=== PATIENT | female | born 1975 | race Caucasian/White ===

== ENCOUNTER 2023-03-28 16:26 | Emergency (ER) | payer BC ==
[~2023-03-28 16:26] MED LIST: Iopamidol 370 76% 100 ML VIAL ONE
[2023-03-28 16:50] LABS: #Basophils 0.1 thou/uL (0.0-0.2); #Eosinphils 0.3 thou/uL (0.0-0.7); #Lymphocytes 3.1 thou/uL (1.20-3.40); #Monocytes 0.7 thou/uL (0.11-0.59); #Neutrophils 6.6 thou/uL (1.40-6.50); %Eosinophils 2.8 % (0.0-10.0); %Lymphocytes 28.7 % (21.0-51.0); %Monocytes 6.8 % (0.0-10.0); %Neutrophils 60.7 % (42.0-75.0); Hemoglobin 13.4 g/dL (12.0-16.0); Mean Corpuscular HGB CONC 32.6 g/dL (32.0-36.0); Mean Corpuscular Hemoglobin 28.9 pg (27.0-31.0); Mean Corpuscular Volume 88.7 fl (78.0-98.0); Mean Platelet Volume 7.5 fL (7.4-10.4); Platelet Count 376 10x3/uL (130-400); RBC Distribution Width 12.3 % (11.5-14.5); Red Blood Cell (RBC) Count 4.63 mill/uL (4.20-5.40); White Blood Cell (WBC) Count 10.8 10x3/uL (4.8-10.8)
[2023-03-28 17:07] LABS: ALT (SGPT) 13 U/L (8-55); AST (SGOT) 13 U/L (5-34); Albumin 4.1 g/dL (3.5-5.0); Alkaline Phosphatase 86 U/L (40-110); Anion Gap 15 mmol/L (10-20); BUN (Urea Nitrogen) 16 mg/dL (7.0-18.7); Bilirubin, Total 0.3 mg/dL (0.2-1.2); Calc. Creatinine Clearance 0 mL/min (70-130); Calcium 9.3 mg/dL (7.8-10.44); Carbon Dioxide 21 mmol/L (22-29); Chloride 105 mmol/L (98-107); Estimated GFR 86; Globulin 3.4 g/dL (2.4-3.5); Glucose 81 mg/dL (70-105); Potassium 3.7 mmol/L (3.5-5.1); Protein, Total 7.5 g/dL (6.0-8.3); Sodium 137 mmol/L (136-145)
[2023-03-28 17:09] LABS: Troponin I Less than 0.010 ng/mL (< 0.028)
[2023-03-28] MEDS ORDERED: Ketorolac Tromethamine 30 MG/ML VIAL ONE (17:29)
[2023-03-28] MEDS ORDERED: Cyclobenzaprine 10 MG TAB ONE (18:25)
== END 2023-03-28 18:31 | disposition home or self-care (01) ==
LOC: BURERS 16:26
DX: R07.2 Precordial pain (principal); I10 Essential (primary) hypertension
CPT/HCPCS: 36415; 71045; 71275; 80053; 84443; 84484; 85025; 85379; 93005; 96374; J1885; Q9967

== ENCOUNTER 2024-02-28 09:16 | Emergency (ER) | payer BC, OTHER ==
[2024-02-28] MEDS ORDERED: Boostrix 0.5 ML (Tdap) VIAL (>/=7 yrs of age) ONE (09:38)
[2024-02-28] MEDS ORDERED: Lidocaine 1%/Epinephrine 1:100K 10 ML VIAL ONE (09:38)
== END 2024-02-28 10:18 | disposition home or self-care (01) ==
LOC: BURERS 09:16
DX: S81.812A Laceration without foreign body, left lower leg, initial encounter (principal); I10 Essential (primary) hypertension; W01.198A Fall on same level from slipping, tripping and stumbling with subsequent striking against other object, initial encounter; Y93.89 Activity, other specified; Z23 Encounter for immunization
CPT/HCPCS: 12001; 90471; 90715